=== PATIENT | male | born 1975 | race Caucasian/White ===

== ENCOUNTER 2017-10-10 14:47 | Emergency (ER) | payer SELFPAY ==
--- NOTE | 2017-10-10 15:50 | EDM.PDOC ---
ED HPI GENERAL MEDICAL PROBLEM - General Chief Complaint: Head Injury Stated Complaint: HEAD INJURY Time Seen by Provider: 10/10/17 14:55 Source of Information: Reports: Patient History Limitations: Reports: No Limitations - History of Present Illness INITIAL COMMENTS - FREE TEXT/NARRATIVE: The patient states that he was talking on his cell phone while walking around his vehicle, and when he finished the call, he felt dizzy and apparently passed out. Someone nearby said that he was unconscious for about 1 minute. The patient recalls waking up while on the ground. He reports having a bitemporal headache and feeling tired and sleepy. He states that he has not found a physical head injury, such as a bump or tender spot. The patient also reports that he felt lightheaded and fell at home yesterday, again with no head injury. The patient acknowledges that he has a substance abuse problem. He last smoked or injected methamphetamine about one week ago, and smoked marijuana about 3 weeks ago. 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 He is concerned that his employer will terminate him if they find a positive drug test. The patient also reports that he ordinarily takes Norvasc and lisinopril for hypertension, but that he has not refilled his prescription for the past 3 weeks , approximately. The patient states that he moved to this area from [place]. He states that he does not want to be here, as he misses his kids and girlfriend. He acknowledges that he has been crying a lot, although denies feeling suicidal. He implied that his drug use is what led to him having to leave [place]. The patient also states that he has a history of a AAA. He does not know the size of it, and states that it was last checked about 2 years ago. He denies having any recent abdominal complaints. The patient does not have a PCP. Head Pain Score (Numeric/FACES): 6 - Related Data Allergies Allergy/AdvReac Type Severity Reaction Status Date / Time No Known Allergies Allergy Verified 10/10/17 15:07 Home Meds: Home Meds Lisinopril 20 mg PO DAILY #5 tablet 10/10/17 [Rx] Lisinopril 40 mg PO DAILY 10/10/17 [History] amLODIPine [Norvasc] 0 mg PO DAILY 10/10/17 [History] amLODIPine [Norvasc] 5 mg PO DAILY #5 tablet 10/10/17 [Rx] Past Medical History Cardiovascular History: Reports: Aneurysm (AAA), Hypertension Psychiatric History: Reports: Addiction (methamphetamine) Endocrine/Metabolic History: Reports: Obesity/BMI 30+ - Past Surgical History Musculoskeletal Surgical History: Reports: Other (See Below) (BB removed from left leg) Social & Family History - Tobacco Use Smoking Status *Q: Current Every Day Smoker Years of Tobacco use: 31 Packs/Tins Daily: 1 - Caffeine Use Caffeine Use: Reports: Coffee, Energy Drinks, Soda - Alcohol Use Alcohol Use History: Yes Alcohol Use Frequency: Socially - Recreational Drug Use Recreational Drug Use: Yes Drug Use in Last 12 Months: Yes Recreational Drug Type: Reports: Marijuana/Hashish (Smokes. Last use early Sep 2017), Methamphetamine (Smokes and injects. Last use mid-Sep 2017) - Living Situation & Occupation Living situation: Reports: , Other (with friends) Occupation: Employed (bus driver supervisor) ED ROS GENERAL - Review of Systems Review Of Systems: See Below GI/Abdominal: Reports: Constipation Psychiatric: Reports: Depression ED EXAM, HEAD INJURY - Physical Exam Exam: See Below Exam Limited By: No Limitations General Appearance: Alert, WD/WN, No Apparent Distress Head: Atraumatic, Normocephalic Eyes: Bilateral Eye: EOMI, Normal Inspection, PERRL Ears: Normal External Exam, Normal Canal, Hearing Grossly Normal, Normal TMs Nose: Normal Inspection, Normal Mucousa, No Blood Throat/Mouth: Normal Inspection, Normal Lips, Normal Teeth, Normal Gums, Normal Oropharynx, Normal Voice, No Airway Compromise Neck: Non-Tender, Full Range of Motion, Normal Alignment, Normal Inspection Respiratory: No Respiratory Distress, Lungs Clear, Normal Breath Sounds, No Accessory Muscle Use Cardiovascular: Normal Peripheral Pulses, Regular Rate, Rhythm, No Gallop, No JVD, No Murmur, No Rub GI/Abdominal Exam: Normal Bowel Sounds, Soft, Non-Tender, No Organomegaly, No Distention, No Abnormal Bruit, No Mass, Other (Obese) (Male) Exam: Deferred Rectal (Males) Exam: Deferred Back Exam: Full Range of Motion, Normal Inspection, NT Extremities: Normal Inspection, Normal Range of Motion, No Pedal Edema, Normal Capillary Refill Neurologic: disability benefits specialist II-XII nml As Tested, No Motor/Sensory Deficits, Alert, Oriented x 3 Skin: Normal Color, Warm/Dry EKG INTERPRETATION EKG Date: 10/10/17 Time: 15:10 Rhythm: NSR Rate (Beats/Min): 84 [place]: Normal P-Wave: Present QRS: Normal ST-T: Elevated (J-point elevation V2, V3, but no ischemic changes) QT: Normal Comparison: NA - No Prior EKG Course - Vital Signs Last Recorded V/S: Last Vital Signs Temp 36.3 C 10/10/17 14:57 Pulse 86 10/10/17 14:57 Resp 20 10/10/17 14:57 BP 177/113 H 10/10/17 16:25 Pulse Ox 97 10/10/17 14:57 Orthostatic Blood Pressure [ 168/128 Standing] Orthostatic Blood Pressure [ 162/117 Supine] - Orders/Labs/Meds Orders: Active Orders 24 hr Category Date Time Status Accu Check [Blood Glucose Check, Bedside] [RC] ONETIME Care 10/10/17 15:13 Active EKG Documentation Completion [RC] STAT Care 10/10/17 15:12 Active Orthostatic Vital Signs [RC] STAT Care 10/10/17 15:12 Active Labs: Laboratory Tests 10/10/17 10/10/17 10/10/17 Range/Units 15:10 15:10 15:10 WBC 9.49 H (4.23-9.07) K/mm3 RBC 5.77 (4.63-6.08) M/mm3 Hgb 16.3 (13.7-17.5) gm/L Hct 48.1 (40.1-51.0) % MCV 83.4 (79.0-92.2) fl MCH 28.2 (25.7-32.2) pg MCHC 33.9 (32.2-35.5) g/dl RDW Std Deviation 42.4 (35.1-43.9) fL Plt Count 309 (163-337) K/mm3 MPV 8.9 L (9.4-12.3) fl Neutrophils % (Manual) 46 (40-60) % Band Neutrophils % 1 (0-10) % Lymphocytes % (Manual) 40 (20-40) % Atypical Lymphs % 0 % Monocytes % (Manual) 7 (2-10) % Eosinophils % (Manual) 5 (0.8-7.0) % Basophils % (Manual) 1 (0.2-1.2) Platelet Estimate Adequate Plt Morphology Comment Normal RBC Morph Comment Normal PT 9.4 (8.0-13.0) SECONDS INR 0.88 APTT 29 (22-36) SECONDS D-Dimer, Quantitative 0.32 (0.19-0.59) mg/L Sodium 139 (136-145) mEq/L Potassium 3.6 (3.5-5.1) mEq/L Chloride 102 (98-107) mEq/L Carbon Dioxide 27 (21-32) mEq/L Anion Gap 13.6 (5-15) BUN 17 (7-18) mg/dL Creatinine 1.0 (0.7-1.3) mg/dL Est Cr Clr Drug Dosing 106.53 mL/min Estimated GFR (MDRD) > 60 (>60) mL/min BUN/Creatinine Ratio 17.0 (14-18) Glucose 118 H (74-106) mg/dL POC Glucose (70-105) mg/dL Calcium 9.1 (8.5-10.1) mg/dL Magnesium 1.9 (1.8-2.4) mg/dl Total Bilirubin 0.2 (0.2-1.0) mg/dL AST 30 (15-37) U/L ALT 43 (16-63) U/L Alkaline Phosphatase 83 (46-116) U/L Troponin I < 0.017 (0.00-0.056) ng/mL Total Protein 7.3 (6.4-8.2) g/dl Albumin 3.2 L (3.4-5.0) g/dl Globulin 4.1 gm/dL Albumin/Globulin Ratio 0.8 L (1-2) Urine Opiates Screen (NEGATIVE) Ur Buprenorphine Scrn (NEGATIVE) Ur Oxycodone Screen (NEGATIVE) Urine Methadone Screen (NEGATIVE) Ur Propoxyphene Screen (NEGATIVE) Ur Barbiturates Screen (NEGATIVE) Ur Tricyclics Screen (NEGATIVE) Ur Phencyclidine Scrn (NEGATIVE) Ur Amphetamine Screen (NEGATIVE) U Methamphetamines Scrn (NEGATIVE) U Benzodiazepines Scrn (NEGATIVE) U Cocaine Metab Screen (NEGATIVE) U Marijuana (THC) Screen (NEGATIVE) Ethyl Alcohol 0.00 (0.00) gm% 10/10/17 10/10/17 Range/Units 15:24 15:37 WBC (4.23-9.07) K/mm3 RBC (4.63-6.08) M/mm3 Hgb (13.7-17.5) gm/L Hct (40.1-51.0) % MCV (79.0-92.2) fl MCH (25.7-32.2) pg MCHC (32.2-35.5) g/dl RDW Std Deviation (35.1-43.9) fL Plt Count (163-337) K/mm3 MPV (9.4-12.3) fl Neutrophils % (Manual) (40-60) % Band Neutrophils % (0-10) % Lymphocytes % (Manual) (20-40) % Atypical Lymphs % % Monocytes % (Manual) (2-10) % Eosinophils % (Manual) (0.8-7.0) % Basophils % (Manual) (0.2-1.2) Platelet Estimate Plt Morphology Comment RBC Morph Comment PT (8.0-13.0) SECONDS INR APTT (22-36) SECONDS D-Dimer, Quantitative (0.19-0.59) mg/L Sodium (136-145) mEq/L Potassium (3.5-5.1) mEq/L Chloride (98-107) mEq/L Carbon Dioxide (21-32) mEq/L Anion Gap (5-15) BUN (7-18) mg/dL Creatinine (0.7-1.3) mg/dL Est Cr Clr Drug Dosing mL/min Estimated GFR (MDRD) (>60) mL/min BUN/Creatinine Ratio (14-18) Glucose (74-106) mg/dL POC Glucose 113 H (70-105) mg/dL Calcium (8.5-10.1) mg/dL Magnesium (1.8-2.4) mg/dl Total Bilirubin (0.2-1.0) mg/dL AST (15-37) U/L ALT (16-63) U/L Alkaline Phosphatase (46-116) U/L Troponin I (0.00-0.056) ng/mL Total Protein (6.4-8.2) g/dl Albumin (3.4-5.0) g/dl Globulin gm/dL Albumin/Globulin Ratio (1-2) Urine Opiates Screen Negative (NEGATIVE) Ur Buprenorphine Scrn Negative (NEGATIVE) Ur Oxycodone Screen Negative (NEGATIVE) Urine Methadone Screen Negative (NEGATIVE) Ur Propoxyphene Screen Negative (NEGATIVE) Ur Barbiturates Screen Negative (NEGATIVE) Ur Tricyclics Screen Negative (NEGATIVE) Ur Phencyclidine Scrn Negative (NEGATIVE) Ur Amphetamine Screen Presumptive positive H (NEGATIVE) U Methamphetamines Scrn Negative (NEGATIVE) U Benzodiazepines Scrn Negative (NEGATIVE) U Cocaine Metab Screen Negative (NEGATIVE) U Marijuana (THC) Screen Negative (NEGATIVE) Ethyl Alcohol (0.00) gm% Meds: Medications Discontinued Medications Generic Name Dose Route Start Last Admin Trade Name Freq PRN Reason Stop Dose Admin Amlodipine Besylate 5 mg 10/10/17 16:14 10/10/17 16:25 Norvasc PO 10/10/17 16:15 5 mg ONETIME ONE Administration Ibuprofen 600 mg 10/10/17 16:07 10/10/17 16:25 Motrin PO 10/10/17 16:08 600 mg ONETIME ONE Administration Lisinopril 20 mg 10/10/17 16:15 10/10/17 16:25 Prinivil PO 10/10/17 16:16 20 mg ONETIME STA Administration - Re-Assessments/Exams Free Text/Narrative Re-Assessment/Exam: 10/10/17 15:48 The patient is not orthostatic. 10/10/17 16:12 Test results discussed with the patient. He refused the CT scan of the head, citing cost, and I was not able to convince him of the need for it. The remainder of his workup today is unremarkable, with the exception of amphetamines in his urine, likely residual from the methamphetamine that the patient admits he ingested about a week ago. The cause of his dizziness and syncope today is unclear. The patient states that he ordinarily takes 40 mg of lisinopril daily and an unknown dose of amlodipine. While we want to decrease the patient's blood pressure, we want to do so gradually. I'm concerned that giving him that large of a dose of antihypertensives may decrease his blood pressure too much, too quickly. I have therefore ordered lisinopril 20 mg and amlodipine 5 mg, to be given at this time, and I will e-prescribe a five-day course with the caveat that the patient follow-up in the clinic this week. The patient promises that he will. While I'm concerned about the patient's AAA, it did not have anything to do with his syncope. If it had leaked or burst, the patient would have complained of abdominal pain before becoming hypotensive and expiring. If the patient follows up in the clinic, as he has promised, an outpatient ultrasound of his abdominal aorta can be ordered. Departure - Departure Time of Disposition: 16:21 Disposition: Home, Self-Care 01 Condition: Fair Clinical Impression: Headache, Syncope and collapse, Uncontrolled hypertension, Polysubstance abuse - Discharge Information Prescriptions: amLODIPine [Norvasc] 5 mg PO DAILY #5 tablet Lisinopril 20 mg PO DAILY #5 tablet Referrals: PCP,Not In Area [Primary Care Provider] - Aparna Murphy [Physician] - Emiliana Dixon MD [Physician] - Forms: ED Department Discharge Additional Instructions: You were seen in the emergency room after becoming dizzy and passing out, along with a headache and feeling tired. In the ER, your blood pressure was found to be high. Workup in the ER included an Accu-Chek, blood work, a urine drug screen, positional blood pressure checks and an ECG. A CT scan of her head was ordered, which you refused to have done. Your urine drug screen was positive for amphetamine. The remainder of your workup was unremarkable, and does not explain the cause of your symptoms. You have been started on the blood pressure medicines lisinopril and Norvasc. Prescriptions for these have been sent to the [facility] pharmacy on [address]. Take one tablet of each blood pressure medicine once a day, as prescribed. Follow-up with either Dr. Murphy or Dr. Dixon in the clinic this week. They can refill your blood pressure medicine prescriptions, as well as order further evaluation of your abdominal aneurysm. STRONGLY consider getting professional help regarding your drug use. We recommend you go to [facility]: [address] [place] [phone] If you change your mind about getting the CT scan of your head, please do not hesitate to return to the ER. - My Orders Last 24 Hours: My Active Orders 10/10/17 15:12 EKG Documentation Completion [RC] STAT Orthostatic Vital Signs [RC] STAT 10/10/17 15:13 Accu Check [Blood Glucose Check, Bedside] [RC] ONETIME - Assessment/Plan Last 24 Hours: My Active Orders 10/10/17 15:12 EKG Documentation Completion [RC] STAT Orthostatic Vital Signs [RC] STAT 10/10/17 15:13 Accu Check [Blood Glucose Check, Bedside] [RC] ONETIME
[2017-10-10] MEDS ORDERED: Ibuprofen 600 MG Tab PO ONE (16:07)
[2017-10-10] MEDS ORDERED: amLODIPine 5 MG Tab PO ONE (16:14)
[2017-10-10] MEDS ORDERED: Lisinopril 20 MG Tab PO STA (16:15)
== END 2017-10-10 16:55 | disposition home or self-care (01) ==
LOC: JD.ED 14:47
DX: I10 Essential (primary) hypertension (principal); R55 Syncope and collapse; F19.10 Other psychoactive substance abuse, uncomplicated; R51 Headache; F17.210 Nicotine dependence, cigarettes, uncomplicated; Z79.899 Other long term (current) drug therapy
CPT/HCPCS: 36415; 80053; 80306; 82962; 83735; 84484; 85025; 85379; 85610; 85730; 93005; 99284; A9270; G0480; 93010